=== PATIENT | female | born 1945 | race Caucasian/White ===

== ENCOUNTER 2019-06-10 11:15 | Inpatient (IN) ==
[2019-06-10] MEDS: *HR* OxyCODONE Immed Rel 5 MG TABLET PO PRN (20:16)
[2019-06-10] MEDS: BuPROPion XL (24 HR) 150 MG TABLET PO SCH (20:17)
[2019-06-10] MEDS: Latanoprost 2.5 ML BOTTLE BOTH EYES SCH (20:17)
[2019-06-11] MEDS: *HR* OxyCODONE Immed Rel 5 MG TABLET PO PRN ×4 (02:31→20:07)
[2019-06-11] MEDS: FLUoxetine 20 MG CAPSULE PO SCH (08:36)
[2019-06-11] MEDS: Multivit/Ca/Min/Fe/FA 1 TAB TABLET PO SCH (08:36)
[2019-06-11] MEDS: BuPROPion XL (24 HR) 150 MG TABLET PO SCH ×2 (08:36→20:07)
[2019-06-11] MEDS: Losartan/HCTZ 50-12.5 TABLET PO SCH (08:40)
[2019-06-11] MEDS: Latanoprost 2.5 ML BOTTLE BOTH EYES SCH (20:07)
[2019-06-12] MEDS: *HR* OxyCODONE Immed Rel 5 MG TABLET PO PRN ×2 (05:46→19:56)
[2019-06-12] MEDS: Losartan/HCTZ 50-12.5 TABLET PO SCH (10:03)
[2019-06-12] MEDS: Multivit/Ca/Min/Fe/FA 1 TAB TABLET PO SCH (10:04)
[2019-06-12] MEDS: BuPROPion XL (24 HR) 150 MG TABLET PO SCH ×2 (10:04→19:57)
[2019-06-12] MEDS: FLUoxetine 20 MG CAPSULE PO SCH (10:04)
[2019-06-12] MEDS: Latanoprost 2.5 ML BOTTLE BOTH EYES SCH (19:56)
[2019-06-13 05:52] LABS: Alanine Aminotransferase 18 Units/L (7-52); Albumin 2.8 g/dL (3.5-5.7); Albumin/Globulin Ratio 1.1 (1.1-2.2); Alkaline Phosphatase 55 Units/L (34-104); Aspartate Amino Transferase 26 Units/L (13-39); BUN/Creatinine Ratio 21 (6-26); Bilirubin,Total 0.8 mg/dL (0.3-1.0); Blood Urea Nitrogen 8 mg/dL (8-23); Carbon Dioxide 28 mEq/L (23-29); Chloride 100 mEq/L (98-107); Globulin 2.5 g/dL (2.4-3.5); Glucose 115 mg/dL (70-105); Magnesium 1.6 mg/dL (1.6-2.6); Osmolality,Calculated 283 (280-300); Potassium 3.4 mEq/L (3.5-5.1); Sodium 137 mEq/L (136-145); Total Protein 5.3 g/dL (6.4-8.9); eGFR For African Americans > 60 (> 60); eGFR For Non-African Americans > 60 (> 60)
[2019-06-13] MEDS: *HR* OxyCODONE Immed Rel 5 MG TABLET PO PRN (05:59)
[2019-06-13 06:00] LABS: Thyroid Stimulating Hormone 1.979 mcIU/mL (0.340-5.600)
[2019-06-13 07:36] LABS: Basophils % 0.4 %; Eosinophils # 0.1 K/mcL (0.0-0.6); Eosinophils % 1.6 %; Hematocrit 25.4 % (35.3-44.9); Hemoglobin 8.9 g/dL (11.5-15.4); Immature Granulocytes % 0.6 % (0-4); Lymphocytes # 1.2 K/mcL (0.6-4.6); Lymphocytes % 17.4 %; Mean Corpuscular Hemoglobin 34.6 pg (28.0-33.3); Mean Corpuscular Volume 98.8 fL (83.0-100.0); Mean Platelet Volume 10.9 fL (9.4-12.4); Monocytes # 1.1 K/mcL (0.0-1.3); Monocytes % 16.1 %; Neutrophils # 4.4 K/mcL (1.6-8.9); Platelet Count 163 K/mcL (140-400); Red Blood Count 2.57 M/mcL (3.82-4.97); Red Cell Distribution Width 12.7 % (11.5-14.5); Segmented Neutrophils % 63.9 %; White Blood Count 6.9 K/mcL (4.3-11.1)
[2019-06-13] MEDS: Multivit/Ca/Min/Fe/FA 1 TAB TABLET PO SCH (08:35)
[2019-06-13] MEDS: Losartan/HCTZ 50-12.5 TABLET PO SCH (08:35)
[2019-06-13] MEDS: FLUoxetine 20 MG CAPSULE PO SCH (08:35)
[2019-06-13] MEDS: BuPROPion XL (24 HR) 150 MG TABLET PO SCH ×2 (08:37→20:30)
[2019-06-13 10:59] LABS: Ferritin 113 ng/mL (10-120)
[2019-06-13] MEDS: Pregabalin 50 MG CAPSULE PO SCH ×2 (13:12→20:30)
[2019-06-13] MEDS: Latanoprost 2.5 ML BOTTLE BOTH EYES SCH (20:31)
[2019-06-13 23:14] LABS: Estimated Average Glucose 111 mg/dl
[2019-06-14] MEDS: Losartan/HCTZ 50-12.5 TABLET PO SCH (08:47)
[2019-06-14] MEDS: BuPROPion XL (24 HR) 150 MG TABLET PO SCH ×2 (08:48→20:06)
[2019-06-14] MEDS: Multivit/Ca/Min/Fe/FA 1 TAB TABLET PO SCH (08:48)
[2019-06-14] MEDS: Pregabalin 50 MG CAPSULE PO SCH ×2 (08:48→20:04)
[2019-06-14] MEDS: *HR* OxyCODONE Immed Rel 5 MG TABLET PO PRN ×2 (08:50→20:04)
[2019-06-14] MEDS ORDERED: Bisacodyl 10 MG RECTAL SUPPOSITORY RC PRN (11:12)
[2019-06-14] MEDS: Sennosides 8.6 MG TABLET PO SCH (20:05)
[2019-06-14] MEDS: Latanoprost 2.5 ML BOTTLE BOTH EYES SCH (20:06)
[2019-06-15] MEDS: Pregabalin 50 MG CAPSULE PO SCH ×2 (08:51→20:52)
[2019-06-15] MEDS: Losartan/HCTZ 50-12.5 TABLET PO SCH (08:51)
[2019-06-15] MEDS: BuPROPion XL (24 HR) 150 MG TABLET PO SCH ×2 (08:52→20:53)
[2019-06-15] MEDS: Multivit/Ca/Min/Fe/FA 1 TAB TABLET PO SCH (08:52)
[2019-06-15] MEDS: Sennosides 8.6 MG TABLET PO SCH ×2 (08:52→20:53)
[2019-06-15] MEDS: tiZANidine 4 MG TABLET PO SCH ×2 (16:15→23:20)
[2019-06-15] MEDS: Latanoprost 2.5 ML BOTTLE BOTH EYES SCH (20:51)
[2019-06-16 06:45] LABS: Hematocrit 26.7 % (35.3-44.9); Mean Corpuscular HGB Conc 33.7 g/dL (31.6-35.5); Mean Corpuscular Hemoglobin 34.1 pg (28.0-33.3); Mean Corpuscular Volume 101.1 fL (83.0-100.0); Mean Platelet Volume 10.8 fL (9.4-12.4); Platelet Count 223 K/mcL (140-400); Red Blood Count 2.64 M/mcL (3.82-4.97); Red Cell Distribution Width 13.5 % (11.5-14.5); White Blood Count 5.9 K/mcL (4.3-11.1)
[2019-06-16 07:06] LABS: BUN/Creatinine Ratio 21 (6-26); Blood Urea Nitrogen 11 mg/dL (8-23); Calcium 8.3 mg/dL (8.6-10.3); Carbon Dioxide 29 mEq/L (23-29); Chloride 103 mEq/L (98-107); Glucose 103 mg/dL (70-105); Osmolality,Calculated 288 (280-300); Potassium 3.6 mEq/L (3.5-5.1); Sodium 139 mEq/L (136-145); eGFR For African Americans > 60 (> 60); eGFR For Non-African Americans > 60 (> 60)
[2019-06-16] MEDS: Losartan/HCTZ 50-12.5 TABLET PO SCH (08:07)
[2019-06-16] MEDS: Multivit/Ca/Min/Fe/FA 1 TAB TABLET PO SCH (08:07)
[2019-06-16] MEDS: Sennosides 8.6 MG TABLET PO SCH ×2 (08:08→20:02)
[2019-06-16] MEDS: BuPROPion XL (24 HR) 150 MG TABLET PO SCH ×2 (08:08→20:03)
[2019-06-16] MEDS: Pregabalin 50 MG CAPSULE PO SCH ×2 (08:08→20:02)
[2019-06-16] MEDS: tiZANidine 4 MG TABLET PO SCH ×2 (08:08→16:02)
[2019-06-16] MEDS: *HR* OxyCODONE Immed Rel 5 MG TABLET PO PRN ×2 (13:03→20:02)
[2019-06-16] MEDS: Latanoprost 2.5 ML BOTTLE BOTH EYES SCH (20:03)
[2019-06-17] MEDS: tiZANidine 4 MG TABLET PO SCH ×3 (00:24→16:26)
[2019-06-17] MEDS: *HR* OxyCODONE Immed Rel 5 MG TABLET PO PRN ×2 (09:19→16:26)
[2019-06-17] MEDS: Multivit/Ca/Min/Fe/FA 1 TAB TABLET PO SCH (09:20)
[2019-06-17] MEDS: Pregabalin 50 MG CAPSULE PO SCH ×2 (09:20→19:54)
[2019-06-17] MEDS: Sennosides 8.6 MG TABLET PO SCH ×2 (09:21→19:51)
[2019-06-17] MEDS: BuPROPion XL (24 HR) 150 MG TABLET PO SCH ×2 (09:21→19:51)
[2019-06-17] MEDS: Latanoprost 2.5 ML BOTTLE BOTH EYES SCH (19:54)
[2019-06-18] MEDS: tiZANidine 4 MG TABLET PO SCH ×4 (00:45→23:39)
[2019-06-18] MEDS: Pregabalin 50 MG CAPSULE PO SCH ×2 (08:31→20:45)
[2019-06-18] MEDS: Multivit/Ca/Min/Fe/FA 1 TAB TABLET PO SCH (08:32)
[2019-06-18] MEDS: Sennosides 8.6 MG TABLET PO SCH ×2 (08:32→20:45)
[2019-06-18] MEDS: BuPROPion XL (24 HR) 150 MG TABLET PO SCH ×2 (08:33→20:45)
[2019-06-18] MEDS: *HR* OxyCODONE Immed Rel 5 MG TABLET PO PRN (20:43)
[2019-06-18] MEDS: Latanoprost 2.5 ML BOTTLE BOTH EYES SCH (20:46)
[2019-06-19] MEDS: tiZANidine 4 MG TABLET PO SCH ×2 (08:28→16:23)
[2019-06-19] MEDS: Pregabalin 50 MG CAPSULE PO SCH ×2 (09:49→21:00)
[2019-06-19] MEDS: Sennosides 8.6 MG TABLET PO SCH ×2 (09:49→21:00)
[2019-06-19] MEDS: BuPROPion XL (24 HR) 150 MG TABLET PO SCH ×2 (09:50→21:01)
[2019-06-19] MEDS: Multivit/Ca/Min/Fe/FA 1 TAB TABLET PO SCH (09:51)
[2019-06-19] MEDS: *HR* OxyCODONE Immed Rel 5 MG TABLET PO PRN (18:43)
[2019-06-19] MEDS: Latanoprost 2.5 ML BOTTLE BOTH EYES SCH (21:10)
[2019-06-20] MEDS: tiZANidine 4 MG TABLET PO SCH ×3 (00:16→18:03)
[2019-06-20] MEDS: Pregabalin 50 MG CAPSULE PO SCH ×2 (09:44→20:01)
[2019-06-20] MEDS: Multivit/Ca/Min/Fe/FA 1 TAB TABLET PO SCH (09:44)
[2019-06-20] MEDS: BuPROPion XL (24 HR) 150 MG TABLET PO SCH ×2 (09:46→20:02)
[2019-06-20] MEDS: Sennosides 8.6 MG TABLET PO SCH ×2 (09:47→20:02)
[2019-06-20] MEDS: Latanoprost 2.5 ML BOTTLE BOTH EYES SCH (20:02)
[2019-06-21] MEDS: tiZANidine 4 MG TABLET PO SCH ×4 (02:22→23:36)
[2019-06-21] MEDS: Pregabalin 50 MG CAPSULE PO SCH ×2 (10:17→20:01)
[2019-06-21] MEDS: Multivit/Ca/Min/Fe/FA 1 TAB TABLET PO SCH (10:17)
[2019-06-21] MEDS: Sennosides 8.6 MG TABLET PO SCH ×2 (10:18→20:01)
[2019-06-21] MEDS: BuPROPion XL (24 HR) 150 MG TABLET PO SCH ×2 (10:19→20:01)
[2019-06-21] MEDS: Latanoprost 2.5 ML BOTTLE BOTH EYES SCH (20:01)
[2019-06-22] MEDS: BuPROPion XL (24 HR) 150 MG TABLET PO SCH ×2 (07:53→20:03)
[2019-06-22] MEDS: tiZANidine 4 MG TABLET PO SCH ×3 (07:54→23:43)
[2019-06-22] MEDS: Pregabalin 50 MG CAPSULE PO SCH ×2 (07:54→20:02)
[2019-06-22] MEDS: Sennosides 8.6 MG TABLET PO SCH ×2 (07:54→22:26)
[2019-06-22] MEDS: Multivit/Ca/Min/Fe/FA 1 TAB TABLET PO SCH (07:54)
[2019-06-22] MEDS: Latanoprost 2.5 ML BOTTLE BOTH EYES SCH (20:03)
[2019-06-23] MEDS: tiZANidine 4 MG TABLET PO SCH ×2 (09:55→16:30)
[2019-06-23] MEDS: Multivit/Ca/Min/Fe/FA 1 TAB TABLET PO SCH (09:55)
[2019-06-23] MEDS: BuPROPion XL (24 HR) 150 MG TABLET PO SCH ×2 (09:55→19:52)
[2019-06-23] MEDS: Pregabalin 50 MG CAPSULE PO SCH ×2 (09:55→19:52)
[2019-06-23] MEDS: Sennosides 8.6 MG TABLET PO SCH ×2 (09:55→19:52)
[2019-06-23] MEDS: Latanoprost 2.5 ML BOTTLE BOTH EYES SCH (19:51)
[2019-06-24] MEDS: tiZANidine 4 MG TABLET PO SCH ×3 (01:42→17:41)
[2019-06-24] MEDS: BuPROPion XL (24 HR) 150 MG TABLET PO SCH ×2 (08:30→21:05)
[2019-06-24] MEDS: Multivit/Ca/Min/Fe/FA 1 TAB TABLET PO SCH (08:30)
[2019-06-24] MEDS: Pregabalin 50 MG CAPSULE PO SCH ×2 (08:31→21:02)
[2019-06-24] MEDS: Sennosides 8.6 MG TABLET PO SCH ×2 (08:34→21:05)
[2019-06-24] MEDS: Latanoprost 2.5 ML BOTTLE BOTH EYES SCH (21:05)
[2019-06-25] MEDS: tiZANidine 4 MG TABLET PO SCH ×3 (00:32→15:56)
[2019-06-25] MEDS: Pregabalin 50 MG CAPSULE PO SCH ×2 (09:21→20:07)
[2019-06-25] MEDS: Multivit/Ca/Min/Fe/FA 1 TAB TABLET PO SCH (09:21)
[2019-06-25] MEDS: BuPROPion XL (24 HR) 150 MG TABLET PO SCH ×2 (09:22→20:06)
[2019-06-25] MEDS: Sennosides 8.6 MG TABLET PO SCH ×2 (09:23→20:07)
[2019-06-25] MEDS: Latanoprost 2.5 ML BOTTLE BOTH EYES SCH (20:07)
[2019-06-26] MEDS: tiZANidine 4 MG TABLET PO SCH ×3 (00:58→16:33)
[2019-06-26] MEDS: Pregabalin 50 MG CAPSULE PO SCH ×2 (09:00→20:04)
[2019-06-26] MEDS: Multivit/Ca/Min/Fe/FA 1 TAB TABLET PO SCH (09:00)
[2019-06-26] MEDS: Sennosides 8.6 MG TABLET PO SCH ×2 (09:01→20:06)
[2019-06-26] MEDS: BuPROPion XL (24 HR) 150 MG TABLET PO SCH ×2 (09:01→20:52)
[2019-06-26] MEDS: Latanoprost 2.5 ML BOTTLE BOTH EYES SCH (20:08)
[2019-06-27] MEDS: tiZANidine 4 MG TABLET PO SCH ×3 (00:26→17:46)
[2019-06-27] MEDS: BuPROPion XL (24 HR) 150 MG TABLET PO SCH ×2 (09:17→20:00)
[2019-06-27] MEDS: Multivit/Ca/Min/Fe/FA 1 TAB TABLET PO SCH (09:17)
[2019-06-27] MEDS: Pregabalin 50 MG CAPSULE PO SCH ×2 (09:17→20:00)
[2019-06-27] MEDS: Sennosides 8.6 MG TABLET PO SCH ×2 (17:46→20:01)
[2019-06-27] MEDS: Latanoprost 2.5 ML BOTTLE BOTH EYES SCH (20:06)
[2019-06-28] MEDS: tiZANidine 4 MG TABLET PO SCH ×2 (00:21→08:30)
[2019-06-28 07:07] VITALS: BP 148/99
[2019-06-28] MEDS: Pregabalin 50 MG CAPSULE PO SCH (08:29)
[2019-06-28] MEDS: BuPROPion XL (24 HR) 150 MG TABLET PO SCH (08:29)
[2019-06-28] MEDS: Multivit/Ca/Min/Fe/FA 1 TAB TABLET PO SCH (08:30)
[2019-06-28] MEDS: Sennosides 8.6 MG TABLET PO SCH (08:30)
== END 2019-06-28 13:20 | disposition home health service (06) | DRG 949 ==
LOC: INPPIK 16:06 → SUATTDRO 16:06
PROVIDERS: ADMIT Family Medicine; ATTEND Family Medicine